=== PATIENT | male | born 1955 | race Hispanic/Latino ===

== ENCOUNTER 2021-02-14 12:50 | Inpatient (IN) | payer OTHER, SELFPAY ==
[~2021-02-14] VITALS: Ht 165.1 cm; Wt 92.1 kg
[2021-02-14] VITALS (11 sets, daily range): BP systolic 91–120; BP diastolic 62–78
[~2021-02-14 12:50] MED LIST: ACETAMINOPHEN325 M1 PO; COLD & ALLERGY1 EAC1
[2021-02-14 13:42] LABS: BASOPHILS # (AUTO) 0.1 (0.0-0.1); BASOPHILS % 0.6 % (0.0-1.0); EOSINOPHILS # (AUTO) 0.1 (0.0-0.4); EOSINOPHILS % 1.3 % (0.0-6.0); HEMATOCRIT 48.5 % (38.2-49.6); HEMOGLOBIN 16.3 g/dL (14.0-18.0); LYMPHOCYTES # (AUTO) 2.1 (1.0-3.2); LYMPHOCYTES % 21.8 % (18.0-39.1); MEAN CORPUSCULAR HGB CONC 33.6 g/dL (31-35); MEAN CORPUSCULAR VOLUME 89.2 fL (81-99); MONOCYTES # (AUTO) 0.6 (0.2-0.8); MONOCYTES % 6.5 % (4.4-11.3); NEUTROPHILS # (AUTO) 6.6 (2.1-6.9); NEUTROPHILS % 69.2 % (38.7-80.0); PLATELET COUNT 224 x10e3/uL (140-360); RED BLOOD COUNT 5.44 x10e6/uL (4.3-5.7)
[2021-02-14] MEDS ORDERED: ASPIRIN 81 MG CHEW TAB PO ONE (13:45)
[2021-02-14 13:50] LABS: INR 0.91; PROTHROMBIN TIME 12.6 seconds (11.9-14.5)
[2021-02-14 13:51] LABS: PARTIAL THROMBOPLASTIN TIME 30.3 seconds (23.8-35.5)
[2021-02-14 14:02] LABS: ALBUMIN/GLOBULIN RATIO 1.2 (0.8-2.0); ANION GAP 15.3 mmol/L (8-16); CALCIUM 8.9 mg/dL (8.4-10.2); CREATININE, SERUM 0.96 mg/dL (0.72-1.25); MAGNESIUM 2.2 MG/DL (1.3-2.1); POTASSIUM 4.3 mmol/L (3.5-5.1)
[2021-02-14 14:08] LABS: CREATINE KINASE MB 7.1 ng/mL (0-5.0)
[2021-02-14] MEDS: NITROGLYCERIN 0.4 MG SUBL SL PRN ×3 (14:35→15:11)
[2021-02-14] MEDS ORDERED: NITROGLYCERIN 0.4 MG SUBL ONE (14:35)
[2021-02-14] MEDS ORDERED: ONDANSETRON HCL INJ 2MG/ML 2ML 2 MG/ML VIAL IV NR (14:45)
[2021-02-14] MEDS ORDERED: ENOXAPARIN SODIUM INJ 100 MG/ML SYR SC ONE (14:45)
[2021-02-14] MEDS ORDERED: CLOPIDOGREL BISULFATE 75 MG TAB PO NR (14:45)
[2021-02-14] MEDS ORDERED: Morphine 2mg Syringe 2 MG/ML SYR IV NR (14:45)
[2021-02-14] MEDS ORDERED: NITROGLYCERIN 2% OINT 1 GM PKT TOP ONE (15:00)
[2021-02-14] MEDS ORDERED: ONDANSETRON HCL INJ 2MG/ML 2ML 2 MG/ML VIAL IV PRN (15:00)
[2021-02-14] MEDS ORDERED: Morphine 2mg Syringe 2 MG/ML SYR IV PRN (15:00)
[2021-02-14] MEDS ORDERED: HEPARIN SOD (PORCINE) 1000 UNIT/ML 30ML ONE (15:58)
[2021-02-14] MEDS ORDERED: MIDAZOLAM HCL 2 MG/2 ML VIAL ONE (15:59)
[2021-02-14] MEDS ORDERED: LIDOCAINE HCL 2% LOCAL 20 ML VIAL ONE (15:59)
[2021-02-14] MEDS ORDERED: FENTANYL CITRATE/PF 100MCG/2 ML INJ ONE (15:59)
[2021-02-14] MEDS ORDERED: IOPAMIDOL 370 MG/ML 200 ML INFUS..BTL INJ ONE (15:59)
[2021-02-14] MEDS ORDERED: HEPARIN SOD/SOD CHLORIDE 2,000 ML ONE (15:59)
[2021-02-14] MEDS ORDERED: NITROGLYCERIN/D5W 200 MCG/ML 250 ML ONE (16:00)
[2021-02-14] MEDS ORDERED: SODIUM CHLORIDE 0.9% 1000ML 1,000 ML ONE (16:00)
[2021-02-14] MEDS ORDERED: VERAPAMIL HCL 2.5 MG/ML 2 ML VIAL ONE (16:05)
[2021-02-14 18:56] LABS: CREATINE KINASE MB 20.4 ng/mL (0-5.0)
[2021-02-14] MEDS: FAMOTIDINE 20 MG/2 ML VIAL IV SCH (21:06)
[2021-02-15] VITALS (16 sets, daily range): BP systolic 91–137; BP diastolic 62–81
[2021-02-15 02:40] LABS: CREATINE KINASE MB 27.4 ng/mL (0-5.0)
[2021-02-15 06:34] LABS: BASOPHILS # (AUTO) 0.1 (0.0-0.1); BASOPHILS % 0.5 % (0.0-1.0); EOSINOPHILS # (AUTO) 0.1 (0.0-0.4); EOSINOPHILS % 0.7 % (0.0-6.0); HEMATOCRIT 43.7 % (38.2-49.6); HEMOGLOBIN 14.5 g/dL (14.0-18.0); LYMPHOCYTES # (AUTO) 1.8 (1.0-3.2); LYMPHOCYTES % 16.4 % (18.0-39.1); MEAN CORPUSCULAR HEMOGLOBIN 29.8 pg (28-32); MEAN CORPUSCULAR HGB CONC 33.2 g/dL (31-35); MEAN CORPUSCULAR VOLUME 89.9 fL (81-99); MONOCYTES # (AUTO) 0.9 (0.2-0.8); MONOCYTES % 8.4 % (4.4-11.3); NEUTROPHILS # (AUTO) 7.9 (2.1-6.9); NEUTROPHILS % 73.4 % (38.7-80.0); PLATELET COUNT 207 x10e3/uL (140-360); RED BLOOD COUNT 4.86 x10e6/uL (4.3-5.7)
[2021-02-15 06:37] LABS: CREATINE KINASE MB 21.3 ng/mL (0-5.0)
[2021-02-15 07:18] LABS: ALBUMIN 3.3 g/dL (3.5-5.0); ALBUMIN/GLOBULIN RATIO 1.1 (0.8-2.0); ANION GAP 12.5 mmol/L (8-16); CALCIUM 8.4 mg/dL (8.4-10.2); CHOL/HDL RATIO 5.4 (3.9-4.7); CREATININE, SERUM 0.94 mg/dL (0.72-1.25); POTASSIUM 4.5 mmol/L (3.5-5.1)
[2021-02-15] MEDS: FAMOTIDINE 20 MG/2 ML VIAL IV SCH ×2 (08:03→20:20)
[2021-02-15] MEDS: ASPIRIN 81 MG ENTERIC COATED PO SCH (08:06)
[2021-02-15] MEDS: CLOPIDOGREL BISULFATE 75 MG TAB PO SCH (08:06)
[2021-02-15] MEDS ORDERED: ATORVASTATIN 20 MG TAB PO SCH (21:00)
[2021-02-16 00:19] VITALS: BP 129/71
[2021-02-16 05:05] VITALS: BP 146/82
[2021-02-16 07:42] VITALS: BP 129/81
[2021-02-16] MEDS: FAMOTIDINE 20 MG/2 ML VIAL IV SCH (08:32)
[2021-02-16] MEDS: ASPIRIN 81 MG ENTERIC COATED PO SCH (08:32)
[2021-02-16] MEDS: CLOPIDOGREL BISULFATE 75 MG TAB PO SCH (08:32)
[2021-02-16 08:47] VITALS: BP 129/81
[2021-02-16] MEDS ORDERED: LIPITOR20 MG PO (10:25)
[2021-02-16] MEDS ORDERED: PLAVIX75 MG PO (10:25)
[2021-02-16] MEDS ORDERED: NITROSTAT0.4 MG SL (10:25)
[2021-02-16] MEDS ORDERED: ASPIRIN EC81 MG PO (10:25)
[2021-02-16] MEDS ORDERED: ONDANSETRON HCL 4 MG ORAL DISINTEGRATING TAB PO PRN (11:00)
[2021-02-16 11:41] VITALS: BP 151/94
[2021-02-16 15:55] VITALS: BP 104/68
[2021-02-16] MEDS ORDERED: FAMOTIDINE 20 MG TAB PO SCH (21:00)
== END 2021-02-16 17:21 | disposition home or self-care (01) | DRG 247 ==
LOC: ER 13:22 → ERHOLD 14:50 → ICU 17:19 → MED/SURG2 02-15 14:38
PROVIDERS: ADMIT Internal Medicine; ATTEND Internal Medicine
PROC: 027034Z Dilation of Coronary Artery, One Artery with Drug-eluting Intraluminal Device, Percutaneous Approach (ICD-10-PCS; principal; 2021-02-14)
PROC: 4A023N7 Measurement of Cardiac Sampling and Pressure, Left Heart, Percutaneous Approach (ICD-10-PCS; 2021-02-14)
PROC: B2111ZZ Fluoroscopy of Multiple Coronary Arteries using Low Osmolar Contrast (ICD-10-PCS; 2021-02-14)
DX: I21.4 Non-ST elevation (NSTEMI) myocardial infarction (principal); E66.9 Obesity, unspecified; Z68.33 Body mass index [BMI] 33.0-33.9, adult; I10 Essential (primary) hypertension; E78.5 Hyperlipidemia, unspecified; Z20.822 Contact with and (suspected) exposure to COVID-19
CPT/HCPCS: 36415; 71045; 80053; 80061; 82550; 82553; 83690; 83735; 83880; 84484; 85025; 85610; 85730; 92928; 93005; 93306; 93454; 99152; 99153; 99285; C1725; C1769; C1887; J1644; J1650; J2001; J2250; J2270; J2405; J3010; J7030; Q9967; U0002